=== PATIENT | male | born 1975 | race Caucasian/White ===

== ENCOUNTER 2019-04-13 11:53 | Emergency (ER) | payer SELFPAY ==
--- NOTE | 2019-04-13 13:12 | RAD ---
RIGHT ANKLE AP, LATERAL, OBLIQUE Clinical Indication: Trauma Comparison: None. Findings: There is no acute fracture or dislocation. Mineralization is normal. Joint spaces are maintained. The ankle mortise is intact. There is no ankle joint effusion. There is mild lateral ankle soft tissue swelling. IMPRESSION: No acute fracture. Electronically signed by: Curry Arana MD (04/13/2019 1:10 PM) [id number]
[2019-04-13 13:25] VITALS: BP 141/78
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
== END 2019-04-13 13:25 | disposition home or self-care (01) ==
LOC: ER 11:54
DX: S93.401A Sprain of unspecified ligament of right ankle, initial encounter (principal); S00.03XA Contusion of scalp, initial encounter; S00.81XA Abrasion of other part of head, initial encounter; Z88.1 Allergy status to other antibiotic agents; V48.5XXA Car driver injured in noncollision transport accident in traffic accident, initial encounter; Y93.I9 Activity, other involving external motion; Y92.488 Other paved roadways as the place of occurrence of the external cause; Y99.8 Other external cause status
CPT/HCPCS: 73610; 99284